=== PATIENT | female | born 1935 | race Caucasian/White ===

== ENCOUNTER 2017-04-25 21:36 | Inpatient (IN) | payer OTHER ==
[~2017-04-25] VITALS: Ht 167.6 cm; Wt 77.1 kg
--- NOTE | ~2017-04-25 | EKG ---
[place] [address] [facility] [place] [address] ELECTROCARDIOGRAM REPORT Name: JAIMEE RHODES Room #: 444-P [facility] IN M.R.#: [id number] Admission: 04/26/17 Attend Phys: Donald Kaufman MD Discharge: 04/26/17 Date of : 35 Report #: [id number] THIS REPORT FOR: //name// [facility] ED Test Date: 2017-04-25 Test Time: 22:06:00 Pat Name: JAIMEE RHODES Department: Room: [facility] Gender: F Labor Custodian: JOSEPH : 1935 Requested By: Lucinda Rojas Order Number: [id number] MD: Jefferson Wang Measurements Intervals [place] Rate: 72 P: -6 WA: 177 QRS: 7 QRSD: 94 T: 21 QT: 394 QTc: 432 Interpretive Statements Sinus rhythm Supraventricular bigeminy Abnormal R-wave progression, early transition No previous ECG available for comparison Electronically Signed On 04-26-2017 13:26:47 CARRIER BLOWER by Jefferson Wang [email or web address] <ELECTRONICALLY SIGNED> By: Jefferson Wang MD 04/26/171325 05 05 Jefferson Wang MD /DANYA
[2017-04-25 21:37] VITALS: BP 193/100
[2017-04-25 23:33] LABS: ABSOLUTE NEUTROPHILS 4.6 thou/uL (1.4-8.2); BASOPHILS 0.9 % (0.0-2.0); EOSINOPHILS 2.7 % (0.0-3.0); HEMATOCRIT 37.5 % (37.0-47.0); HEMOGLOBIN 13.2 gm/dL (12.0-15.0); LYMPHOCYTES 24.3 % (24.0-44.0); MCH 30.3 pg (26.0-34.0); MCHC 35.2 g/dL (28.0-37.0); MONOCYTES 10.4 % (1.0-8.0); PLATELET COUNT 188 thou/uL (150-400); POLYS 61.7 % (36.0-66.0); RBC 4.36 mil/uL (4.20-5.00); RDW 13.2 % (10.5-14.5); WBC 7.4 thou/uL (4.0-11.0)
[2017-04-25] MEDS ORDERED: LOSARTAN-HCTZ1 EAC3 PO (23:36)
[2017-04-25] MEDS ORDERED: SYNTHROID50 MCG PO (23:37)
[2017-04-25 23:50] LABS: ALBUMIN 3.9 g/dL (3.4-5.0); BUN 18 mg/dL (7-18); CALCIUM 9.5 mg/dL (8.5-10.1); CO2 25 mmol/L (21-32); CREATININE 0.9 mg/dL (0.6-1.0); GLUCOSE 108 mg/dL (74-106); SGOT 17 U/L (15-37); SGPT 23 U/L (30-65); TOTAL BILIRUBIN 0.7 mg/dL (<0.1-1.0); TOTAL PROTEIN 6.8 g/dL (6.4-8.2); TROPONIN-I < 0.04 ng/mL (<0.06)
[2017-04-25 23:59] LABS: SODIUM 131 mmol/L (136-145)
[2017-04-26] LABS: POTASSIUM 3.2 mmol/L (3.5-5.1)
[2017-04-26 00:01] LABS: CHLORIDE 96 mmol/L (98-107)
[2017-04-26 00:07] LABS: ANION GAP 10 mmol/L (7-16)
[2017-04-26 00:17] LABS: URINE BILIRUBIN NEGATIVE (Negative); URINE BLOOD NEGATIVE (Negative); URINE CLARITY CLEAR; URINE COLOR YELLOW; URINE GLUCOSE-RANDOM* NEGATIVE (Negative); URINE KETONES NEGATIVE (Negative); URINE LEUKOCYTES NEGATIVE (Negative); URINE NITRITE NEGATIVE (Negative); URINE PROTEIN (DIPSTICK) NEGATIVE (Negative); URINE SPECIFIC GRAVITY <= 1.005 (1.005-1.035); URINE UROBILINOGEN 0.2 E.U./dl (0.2-1.0)
[2017-04-26 01:07] VITALS: BP 131/68
[2017-04-26 01:17] VITALS: BP 146/80
[2017-04-26 03:43] VITALS: BP 119/75
[2017-04-26 07:40] VITALS: BP 129/69
[2017-04-26] MEDS ORDERED: MOBIC7.5 MG PO (11:08)
[2017-04-26 11:23] VITALS: BP 129/69
[2017-04-26 11:38] VITALS: BP 129/69
== END 2017-04-26 11:37 | disposition home or self-care (01) | DRG 305 ==
LOC: ER 21:36 → EROBS 04-26 00:20 → 4S 04-26 01:07
PROVIDERS: Nurse Practitioner Family
DX: I16.0 Hypertensive urgency (principal); E87.1 Hypo-osmolality and hyponatremia; I10 Essential (primary) hypertension; E03.9 Hypothyroidism, unspecified; Z79.899 Other long term (current) drug therapy; Z96.643 Presence of artificial hip joint, bilateral; M19.90 Unspecified osteoarthritis, unspecified site; E87.6 Hypokalemia
CPT/HCPCS: 10100

== ENCOUNTER 2017-09-27 12:48 | Emergency (ER) | payer OTHER ==
[~2017-09-27] VITALS: Ht 167.6 cm; Wt 77.1 kg
--- NOTE | ~2017-09-27 | EKG ---
[place] [address] [facility] [place] [address] ELECTROCARDIOGRAM REPORT Name: JAIMEE RHODES [id number] Admission: 09/27/17 Attend Phys: Discharge: 09/27/17 Date of : 35 Report #: [id number] THIS REPORT FOR: //name// [facility] ED Test Date: 2017-09-27 Test Time: 14:16:41 Pat Name: JAIMEE RHODES Department: Room: Gender: F Broth Mixer: Latasha MEDEL : 1935 Requested By: Markel Francisco Order Number: [id number] MD: Bolivar Loco Measurements Intervals [place] Rate: 58 P: -23 MD: 166 QRS: 15 QRSD: 89 T: 30 QT: 434 QTc: 427 Interpretive Statements Sinus rhythm Atrial premature complexes Abnormal R-wave progression, early transition Compared to ECG 04/25/2017 22:06:00 No significant changes Electronically Signed On 09-28-2017 11:03:48 CDT by Bolivar Loco [email or web address] <ELECTRONICALLY SIGNED> By: Bolivar Loco MD 09/28/17 1103 1416 1416 MD HAYLEY Ahuja
[~2017-09-27 12:48] MED LIST: LOSARTAN-HCTZ1 EAC3 PO; MOBIC7.5 MG PO; SYNTHROID50 MCG PO
[2017-09-27] MEDS ORDERED: HYZAAR 100-12.1 EACH PO (13:41)
[2017-09-27 13:58] LABS: ABSOLUTE NEUTROPHILS 3.7 thou/uL (1.4-8.2); BASOPHILS 1.2 % (0.0-2.0); EOSINOPHILS 2.6 % (0.0-3.0); HEMATOCRIT 37.1 % (37.0-47.0); HEMOGLOBIN 13.1 gm/dL (12.0-15.0); LYMPHOCYTES 28.8 % (24.0-44.0); MCH 30.6 pg (26.0-34.0); MCHC 35.4 g/dL (28.0-37.0); MCV 86.2 fL (80.0-100.0); MONOCYTES 9.4 % (1.0-8.0); PLATELET COUNT 229 thou/uL (150-400); RDW 13.3 % (10.5-14.5); WBC 6.4 thou/uL (4.0-11.0)
[2017-09-27 14:08] LABS: ANION GAP 7 mmol/L (7-16); BUN 13 mg/dL (7-18); CALCIUM 9.2 mg/dL (8.5-10.1); CHLORIDE 97 mmol/L (98-107); CO2 27 mmol/L (21-32); CREATININE 0.9 mg/dL (0.6-1.0); GLUCOSE 107 mg/dL (74-106); POTASSIUM 3.3 mmol/L (3.5-5.1); SODIUM 131 mmol/L (136-145)
[2017-09-27 14:17] LABS: TROPONIN-I <0.06 ng/mL (<0.06)
[2017-09-28] MEDS ORDERED: NORVASC5 MG PO (21:36)
== END 2017-09-27 16:18 | disposition home or self-care (01) ==
LOC: ER 12:48
PROVIDERS: Physician Assistant
DX: I10 Essential (primary) hypertension (principal); H61.23 Impacted cerumen, bilateral; E03.9 Hypothyroidism, unspecified; Z96.643 Presence of artificial hip joint, bilateral

== ENCOUNTER 2017-09-28 19:58 | Emergency (ER) | payer OTHER ==
[~2017-09-28] VITALS: Ht 167.6 cm; Wt 77.1 kg
--- NOTE | ~2017-09-28 | EKG ---
[place] [address] [facility] [place] [address] ELECTROCARDIOGRAM REPORT Name: JAIMEE RHODES Room #: DEP [facility]#: [id number] Admission: 09/28/17 Attend Phys: Discharge: 09/28/17 Date of : 35 Report #: [id number] THIS REPORT FOR: //name// [facility] ED Test Date: 2017-09-28 Test Time: 20:48:47 Pat Name: JAIMEE RHODES Department: Room: Gender: F Production Grader: WILLIAM : 1935 Requested By: Markel Francisco Order Number: [id number] MD: Kevin Wakefield Measurements Intervals [place] Rate: 69 P: -2 NV: 174 QRS: 16 QRSD: 92 T: 30 QT: 421 QTc: 451 Interpretive Statements Sinus rhythm Atrial premature complexes RSR' in V1 or V2, right VCD Compared to ECG 09/27/2017 14:16:41 RSR' in V1 or V2 now present Electronically Signed On 09-29-2017 7:56:39 CDT by Kevin Wakefield [email or web address] <ELECTRONICALLY SIGNED> By: Kevin Wakefield MD, [facility] 09/29/17 0756 47 Kevin Wakefield MD, [facility] /EPI
[~2017-09-28 19:58] MED LIST changes: +HYZAAR 100-12.1 EACH PO
[2017-09-28] MEDS ORDERED: NORVASC5 MG PO (21:36)
== END 2017-09-28 21:48 | disposition home or self-care (01) ==
LOC: ER 19:58
DX: I10 Essential (primary) hypertension (principal); E03.9 Hypothyroidism, unspecified; Z96.643 Presence of artificial hip joint, bilateral

== ENCOUNTER → 2018-08-06 | Outpatient (CLI) | payer OTHER ==
[~2018-08-06] MED LIST changes: +NORVASC5 MG PO
== END ==
LOC: RAD 09:53
DX: M51.36 Other intervertebral disc degeneration, lumbar region (principal); M43.16 Spondylolisthesis, lumbar region; M12.88 Other specific arthropathies, not elsewhere classified, other specified site; Z96.643 Presence of artificial hip joint, bilateral

== ENCOUNTER 2018-08-09 11:33 | Inpatient (IN) | payer OTHER ==
[~2018-08-09] VITALS: Ht 165.1 cm; Wt 72.6 kg
--- NOTE | ~2018-08-09 | HC ---
[facility] [place] [address] CONSULTATION Name: JAIMEE RHODES Room #: 461-P ADM IN M.R.#: [id number] Admission: 08/09/18 ������������������ Attend Phys: Ming Sanchez MD Discharge: ������������������ Date of : 35 Report #: [id number] THIS REPORT FOR: //name// CC: Ming Ruiz DATE OF SERVICE: 08/10/2018 HISTORY OF PRESENT ILLNESS: The patient is an 82-year-old female who was ambulating in the community, apparently stubbed her toe to the sidewalk and fell. She was noted to sustain right pubic rami fractures. Noted the weightbearing as tolerated. She was treated for some hyponatremia. Last sodium was improved to 134 from 131. We are seeing her in rehabilitation medicine consultation. PAST MEDICAL HISTORY: Includes bilateral total hip arthroplasties, history of right shoulder arthroplasty. She has a history of hypertension and hypothyroidism. MEDICATIONS: Please see the full medication listing. SOCIAL HISTORY: She lives in a house with her , 2 steps in with railing. Premorbid cane ambulator only in the community. REVIEW OF SYSTEMS: She did not offer any current complaints of chest pain, shortness of breath, or abdominal discomfort. ALLERGIES: No known drug allergies. PHYSICAL EXAMINATION: GENERAL: Pleasant 82-year-old white female, in no obvious distress. VITAL SIGNS: Last recorded temperature 98.6, pulse 76, respirations 20, blood pressure 129/81. She is alert and pleasant. HEENT: Appeared to be benign. NEUROLOGIC: Cranial nerves grossly intact. Facies are symmetric. MUSCULOSKELETAL: She has functional range of motion of both upper extremities without obvious focal weakness. DTRs are trace to 1. Lower extremities, functional range of motion of left lower extremity without focal weakness. She tends to favor moving that right lower extremity. I would grade her strength at more of 4- to 3+/5. Functionally, she has been min assist with sit to stand. Gait was 20 feet min assist with a front-wheeled walker. ASSESSMENT: An 82-year-old white female with the following problems: 1. Right pubic rami fractures, noted to be weightbearing as tolerated. 2. Hyponatremia, which has improved. 3. [place] [address] CONSULTATION Name: JAIMEE RHODES Room #: 461-P ADM IN M.R.#: [id number] Admission: 08/09/18 ������������������ Attend Phys: Ming Sanchez MD Discharge: ������������������ Date of : 35 Report #: [id number] 4. Hypothyroidism. PLAN: The patient does not meet criteria from a medical necessity standpoint for an acute 5-North inpatient rehabilitation stay. We will need to check another therapy options as per her insurance. Case management is to further assist. Thank you for asking us to assist in this patient's care. ��������������������������������������������� ���������������������������������������� By: ��������������������������������������������� 1217 0003 Roberto Arredondo MD /haroldo
[2018-08-09 11:38] VITALS: BP 140/84
[2018-08-09 12:32] LABS: ABSOLUTE NEUTROPHILS 8.3 thou/uL (1.4-8.2); BASOPHILS 0.5 % (0.0-2.0); EOSINOPHILS 0.8 % (0.0-3.0); HEMATOCRIT 37.8 % (37.0-47.0); LYMPHOCYTES 13.7 % (24.0-44.0); MCH 29.7 pg (26.0-34.0); MCHC 34.4 g/dL (28.0-37.0); MCV 86.2 fL (80.0-100.0); MONOCYTES 7.1 % (1.0-8.0); PLATELET COUNT 228 thou/uL (150-400); POLYS 77.9 % (36.0-66.0); RBC 4.39 mil/uL (4.20-5.00); RDW 13.6 % (10.5-14.5); WBC 10.7 thou/uL (4.0-11.0)
[2018-08-09 12:34] LABS: CALCIUM 9.5 mg/dL (8.5-10.1); CREATININE 0.9 mg/dL (0.6-1.0); POTASSIUM 3.7 mmol/L (3.5-5.1)
--- NOTE | 2018-08-09 15:15 | NUR ---
PT MOVED FROM BED 3 TO BED 16 AWAITING ADMISSION
[2018-08-09 16:23] VITALS: BP 154/83
[2018-08-09 16:52] VITALS: BP 143/79
--- NOTE | 2018-08-09 18:44 | NUR ---
PT ARROVED ON UNIT IN EARLY EVENING FROM ER. ORDERS IMPLEMETED, VITAL SIGNS STABLE. WILL CONTINUE TO MONITOR.
[2018-08-10 05:54] LABS: HEMATOCRIT 35.3 % (37.0-47.0); HEMOGLOBIN 12.2 gm/dL (12.0-15.0); MCH 29.7 pg (26.0-34.0); MCHC 34.5 g/dL (28.0-37.0); MCV 86.2 fL (80.0-100.0); RBC 4.09 mil/uL (4.20-5.00); RDW 13.7 % (10.5-14.5); WBC 10.2 thou/uL (4.0-11.0)
[2018-08-10 06:03] LABS: CALCIUM 8.8 mg/dL (8.5-10.1); CREATININE 0.8 mg/dL (0.6-1.0); MAGNESIUM 1.5 mg/dL (1.8-2.4); POTASSIUM 3.4 mmol/L (3.5-5.1)
[2018-08-10 08:00] VITALS: BP 129/81
--- NOTE | 2018-08-10 13:01 | NUR ---
MAGISTRATE ASSISTANT SENT REFERRAL TO [facility], WITH A POSSIBLE DISCHARGE TODAY.
--- NOTE | 2018-08-10 14:22 | NUR ---
PT ADMITTED RELATED TO RT PUBIC RAMUS FX. CM REVIEWED CHART AND SPOKE WITH CARE TEAM. CM MET WITH PT AT BEDSIDE THIS DAY. PT IS A&O X4. CM ROLE INTRODCUED. PT INDICATED SHE LIVES IN A HOUSE WITH HER SPOUSE WITH 2 STEPS TO ENTER AND NO STEPS INSIDE. 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 PT INDICATED SHE HOPED TO GO TO AN ACUTE REHAB ONCE MEDICALLY STABLE. 5N INDICATED THAT PT ISN'T MEDICALLY COMPLEX ENOUGH FOR 5N. REFERRAL WAS SENT TO [facility] FOR REVIEW FOR POSSIBLE ADMISSION. CM TO FOLLOW INDICATED WITH DC PLANNING.
--- NOTE | 2018-08-10 14:34 | NUR ---
PATIENT SEEN BY DR. OROZCO THIS DATE FOR CONSULTATION. PATIENT IS NOT A CANDIDATE FOR ACUTE REHAB DUE TO NO MEDICAL COMPLEXITY. PATTERNMAKER PLASTER INFORMED. THANK YOU FOR THIS REFERRAL.
[2018-08-10 15:00] VITALS: BP 121/79
--- NOTE | 2018-08-10 20:23 | NUR ---
ASSUMED CARE 0700. ALERT X4, PAIN MANAGED WITH MEDICATIONS, UP WITH MODERATE ASSISTACNE WITH GAIT BELT AND WALKER, WEIGHT BARING TOLERATED. ROUNDED WITH PT AND OT AND TOLERATED WELL. PT WILL DC TO REHAB POSSIBLE TOMORROW. FALL PRECAUTIONS IN PLACE. CALLS FOR ASSISTANCE. CALL LIGHT IN REACH.
[2018-08-10 21:34] VITALS: BP 141/86
[2018-08-11 05:36] LABS: HEMATOCRIT 34.4 % (37.0-47.0); HEMOGLOBIN 11.8 gm/dL (12.0-15.0); MCH 29.7 pg (26.0-34.0); MCHC 34.3 g/dL (28.0-37.0); MCV 86.6 fL (80.0-100.0); RBC 3.97 mil/uL (4.20-5.00); RDW 13.7 % (10.5-14.5); WBC 10.9 thou/uL (4.0-11.0)
[2018-08-11 05:52] LABS: CALCIUM 9.1 mg/dL (8.5-10.1); CREATININE 0.9 mg/dL (0.6-1.0); MAGNESIUM 1.9 mg/dL (1.8-2.4)
[2018-08-11 05:54] LABS: POTASSIUM 4.6 mmol/L (3.5-5.1)
[2018-08-11 05:57] VITALS: BP 130/77
[2018-08-11 07:15] VITALS: BP 140/77
--- NOTE | 2018-08-11 08:12 | NUR ---
PROGRESS PT SLEPT WELL PAIN IN BETTER CONTROL ABLE TO AMBULATE TO BR WITH GB AND WALKER. TAKING PAIN MEDS SPARINGLY. HOPES TO TRANSFER HOME OR TO REHAB SOON CONTINUE TO MONITOR.
--- NOTE | 2018-08-11 11:37 | NUR ---
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
[2018-08-11 14:50] VITALS: BP 107/62
--- NOTE | 2018-08-11 15:01 | NUR ---
ASSUMED CARE 0700. A/OX4, PAIN MANAGED WITH MEDICATIONS, VOICED SHE FEELS BETTER AND ABLE TO AMBULATE WITH LESS PAIN THEN YESTURDAY. BM TODAY CONTINENT PLANS TO DC TO REHAB TOMORROW. FALL PRECATIONS REMAIN IN PLACE. USES CALL LIGHT APPROPRIATELY.
--- NOTE | 2018-08-11 17:29 | NUR ---
INSURANCE DENIED [facility]. CM NOTIFIED PT AND FAMILY REFERRAL TO BE SENT TO [facility] FOR REVIEW FOR POSSIBLE ADMISSION.
[2018-08-11 20:25] VITALS: BP 147/78
[2018-08-12 05:47] LABS: HEMOGLOBIN 11.5 gm/dL (12.0-15.0); MCH 29.9 pg (26.0-34.0); MCHC 34.8 g/dL (28.0-37.0); MCV 85.8 fL (80.0-100.0); RBC 3.84 mil/uL (4.20-5.00); RDW 13.7 % (10.5-14.5); WBC 8.9 thou/uL (4.0-11.0)
[2018-08-12 06:00] LABS: CALCIUM 9.1 mg/dL (8.5-10.1); CREATININE 0.8 mg/dL (0.6-1.0); MAGNESIUM 2.1 mg/dL (1.8-2.4); POTASSIUM 4.4 mmol/L (3.5-5.1)
[2018-08-12 07:27] VITALS: BP 136/72
--- NOTE | 2018-08-12 07:56 | NUR ---
progress pt a/o x 4 up with cga gb and walker gait steady reports less pain since she has been up walking. taking oxycodone for pain with effect. plans to dc to rehab until well enough to go home continue poc.
--- NOTE | 2018-08-12 10:09 | NUR ---
DIscharge Planning: FÉLIX faxed initial referral to [facility] . FÉLIX spoke with admissions/Kimberly [phone] ext. # [phone]. [facility] said they received referral and she forwarded it to the nurse, Kimberly will get back to myself (FÉLIX) or Cristiana/GUILLE here at [facility]. Odalis is ready for discharge today.
--- NOTE | 2018-08-12 15:04 | NUR ---
Received awake on bed. Due medications given as prescribed- able to swallow medications without difficulty. With SL at [facility]. A/W doctors rounds if pt will be dischaged today, CM aware and waiting for her input as well. Falls risk- falls bundle in place. Visited by relatives today. Able to sit out on chair. On room air. Vital signs stable. A+Ox4.
[2018-08-12 15:20] VITALS: BP 166/84
--- NOTE | 2018-08-12 15:36 | NUR ---
cm reached out to magdalena with [facility] rt auth for snf at [facility] for skilled. cm left message requested call back. magdalena called back stated " was just on phone with [facility] and they have auth number for skilled rehab"/magdalena with [facility]. cm passed on information to cm team.
[2018-08-12] MEDS ORDERED: COZAAR 50 MG TA50 M1 PO (16:24)
[2018-08-12] MEDS ORDERED: HYDROCODON-ACE1 EAC7 PO (16:25)
--- NOTE | 2018-08-12 18:18 | NUR ---
PT DISHCARGED TO [facility] THIS DAY. REPORT WAS CALLED. ORDERS WERE FAXED. CHART COPY MADE. PT'S AND FAMILY WERE AWARE AND AGREEABLE. NO OTHER CM INTERVENTION INDICATED AT THIS TIME. CASE CLOSED.
== END 2018-08-12 18:50 | DRG 536 ==
LOC: ER 11:33 → EROBS 14:00 → 4W 14:00
PROVIDERS: Nurse Practitioner Family; ADMIT Internal Medicine
DX: S32.591A Other specified fracture of right pubis, initial encounter for closed fracture (principal); E87.1 Hypo-osmolality and hyponatremia; I10 Essential (primary) hypertension; W18.39XA Other fall on same level, initial encounter; M25.461 Effusion, right knee; E03.9 Hypothyroidism, unspecified; E87.6 Hypokalemia; E83.42 Hypomagnesemia; Z96.611 Presence of right artificial shoulder joint; Z96.643 Presence of artificial hip joint, bilateral; Z79.899 Other long term (current) drug therapy; Y93.89 Activity, other specified; Y92.89 Other specified places as the place of occurrence of the external cause; Y99.8 Other external cause status
CPT/HCPCS: 10040

== ENCOUNTER 2018-09-13 12:10 | Emergency (ER) | payer OTHER ==
[~2018-09-13] VITALS: Ht 162.6 cm; Wt 79.4 kg
[~2018-09-13 12:10] MED LIST changes: +COZAAR 50 MG TA50 M1 PO; +HYDROCODON-ACE1 EAC7 PO
[2018-09-13 15:26] VITALS: BP 127/79
[2018-09-13] MEDS ORDERED: NORCO 5-325 TA1 EAC1 PO (16:38)
== END 2018-09-13 14:55 | disposition home or self-care (01) ==
LOC: ER 12:10
DX: S32.9XXA Fracture of unspecified parts of lumbosacral spine and pelvis, initial encounter for closed fracture (principal); X58.XXXA Exposure to other specified factors, initial encounter; Y93.89 Activity, other specified; Y92.89 Other specified places as the place of occurrence of the external cause; Y99.8 Other external cause status; I10 Essential (primary) hypertension; E03.9 Hypothyroidism, unspecified; Z96.643 Presence of artificial hip joint, bilateral

== ENCOUNTER → 2018-09-28 | Outpatient (CLI) | payer OTHER ==
[~2018-09-28] VITALS: Ht 165.1 cm; Wt 68.0 kg
[~2018-09-28] MED LIST changes: +NORCO 5-325 TA1 EAC1 PO
--- NOTE | ~2018-09-28 | HPC ---
[facility] [address] [place] [address] PAIN MANAGEMENT CONSULTATION Name: JAIMEE RHODES Room #: REG LOUISE Satya.#: [id number] Admission: 09/28/18 ������������������ Attend Phys: Audi Stafford MD Discharge: ������������������ Date of : 35 Report #: [id number] THIS REPORT FOR: //name// CC: Silvana Ruiz V BELT CURER Audi Stafford DATE OF SERVICE: 09/28/2018 SUBJECTIVE: The patient showed up at our front office spec today from Dr. Ruiz's office crying. She was to schedule an appointment. We worked her into the schedule because she was in such miserable pain. She scored her pain is a 10 plus. She suffered a fall about 6 weeks ago. As a result of the fall, she sustained multiple fractures of her pelvis including the superior and inferior pubic rami as well as the sacral ala bilaterally. She has been in pain ever since. She has been given medications to ease her pain, but the pain continues to be severe. She also complains today of pain more than her pelvis. In fact, her primary pain seems to be radicular in nature. It radiates down the posterior aspect of her legs. It is noted on her x-rays later in the visit that she has a grade 1+ spondylolisthesis, which may be either acute or potentially also causing her pain. Her fall was fairly significant. MEDICATIONS: Hydrocodone 7.5/325. This is a new increase in prescription from Dr. Ruiz's office. She denies other medications. ALLERGIES: None. PAST MEDICAL HISTORY: Significant for low back arthritis, but otherwise, she reports she has been in excellent health. She has had a hip replacement on both right and left and she has had shoulder surgery in 2019. REVIEW OF SYSTEMS: Positive for pain, limited movement, loss of appetite, fatigue, weakness, nervousness, depression, insomnia, triggered also by pain. 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 She lives at home with her with whom she celebrated their 66 anniversary yesterday. She denies use of tobacco or alcohol. She is here today with her daughter who is supportive and providing care in the home. PHYSICAL EXAMINATION: GENERAL: She is pleasant female. By the time she was in my office, she had calmed down significantly, was not crying, although she cried earlier in the [facility] [address] [place] [address] PAIN MANAGEMENT CONSULTATION Name: JAIMEE RHODES Room #: REG CLSarah Mason#: [id number] Admission: 09/28/18 ������������������ Attend Phys: Audi Stafford MD Discharge: ������������������ Date of : 35 Report #: [id number] visit. VITAL SIGNS: Her blood pressure 132/80, heart rate 98, respirations 16. HEENT: Within normal limits. Pupils equal, round, reactive to light. EOMs are intact. Mucous membranes are moist. NECK: Supple. CHEST: Clear to auscultation. CARDIAC: Rhythm is regular. ABDOMEN: Soft with no organomegaly. BACK: Examination of the spine reveals some tenderness across the lumbosacral segment. She has tenderness bilaterally in the area where the sacral ala fracture would be present. She also has some anterior pain along the pubic rami. Straight leg raising is positive for radicular symptoms at L5-S1 distribution bilaterally. She can ambulate, but there is a slight fall risk. She spent most of time in our office in a wheelchair. Sensation is intact with no loss of sensation. She has generalized weakness of the lower extremities, mostly guarding because of pain. IMPRESSION: 1. Low back pain with radiculopathy, which I believe is L5-S1 and may be related to the sacral ala fractures. It follows all the way from the back through the hips, posterior thighs and into the calves. 2. Multiple pelvic fractures related to trauma. RECOMMENDATIONS: Interrupting the pain cycle with an epidural plus treatment of the radicular symptoms seems reasonable. Potential risks and benefits of procedure were discussed with the patient. She is anxious to proceed. PROCEDURE: Epidural steroid injection under fluoroscopic guidance. She was taken to fluoroscopic suite, placed prone, skin prepped with ChloraPrep. Skin anesthetized over the L5-S1 interspace. A 20-gauge Tuohy epidural needle was advanced in the epidural space, but was uncomfortable with the epidurogram. I also did not want to give her an intrathecal injection late in the day. The needle was removed. I believe the initial medication was likely posterior to the sacral table in reviewing the x-rays. I had only injected saline and a small amount of radiographic dye. I elected to proceed to the area of the L4-L5 spondylolisthesis and advanced needle into the epidural space with local anesthetic 1% lidocaine using loss of resistance technique. There was no blood or CSF aspirated. A 1 mL of Omnipaque was injected and excellent epidurogram achieved, extending caudad and cephalad and it was then followed by 4 mL of 0.5% lidocaine mixed with 40 mg of triamcinolone. I chose to reduce her triamcinolone due to her fractures and history of osteoporosis. She tolerated the procedure well. Pain score was reduced by roughly 50% at discharge. [facility] [address] [place] [address] PAIN MANAGEMENT CONSULTATION Name: JAIMEE RHODES [facility] [id number] Admission: 09/28/18 ������������������ Attend Phys: Audi Stafford MD Discharge: ������������������ Date of : 35 Report #: [id number] I have told her that she should see some healing from these injections over time and we would anticipate that it might take as long as 3-4 months. ��������������������������������������������� ���������������������������������������� By: ��������������������������������������������� 1822 0012 Audi Stafford MD /nt
[2018-09-28 15:30] VITALS: BP 132/80
--- NOTE | 2018-09-28 15:42 | NUR ---
Pain Clinic Assessment: 1. History of Osteoarthritis: SHOULDER RT BILAT HIPS BACK History of Rheumatoid Arthritis: Not Applicable 2. Height: 5 ft. 5 in. 165.1 cm. Weight: 150.0 lb. oz. 68.040 kg. Patient's BMI: 25.0 3. Vital Signs: BP: 132/80 Pulse: 98 Resp: 16 Temp: 02 Sat: 98 ECG Mon: 4. Pain Intensity: 10 5. Fall Risk: Dizziness: N Needs help standing or walking: Y Fallen in the last 3 months: Y Fall risk comments: 6. Patient on Blood Thinner: None 7. History of Hypertension: Y 8. Opioid Therapy greater than 6 weeks: Y Opiate Contract Signed: 9. Risk Assessment Tool Provided: 10. Functional Assessment Tool: 70/70 11. Recreational Drug Use: Never Drug Type: Tobacco Use: Never Smoker Tobacco Type: Amount or Packs/day: How Many Years: Alcohol Use: No Frequency: Quant:
== END | disposition home or self-care (01) ==
LOC: PAIN 15:04
DX: M54.16 Radiculopathy, lumbar region (principal); M43.16 Spondylolisthesis, lumbar region; M19.90 Unspecified osteoarthritis, unspecified site; Z79.899 Other long term (current) drug therapy; Z96.643 Presence of artificial hip joint, bilateral; Z98.890 Other specified postprocedural states; Z88.8 Allergy status to other drugs, medicaments and biological substances

== ENCOUNTER → 2018-10-29 | Outpatient (CLI) | payer OTHER ==
[~2018-10-29] VITALS: Ht 165.1 cm; Wt 66.6 kg
[~2018-10-29] MED LIST changes: +COZAAR 25 MG TA25 M1 PO; +NORCO 7.5-3251 EACH PO; +TOBRAMYCIN SULFA5 M1 OPHTHALMIC
--- NOTE | ~2018-10-29 | HPC ---
[facility] [place] [address] PAIN MANAGEMENT CONSULTATION Name: JAIMEE RHODES Room #: REG LOUISE Satya.#: [id number] Admission: 10/29/18 Attend Phys: Audi Stafford MD Discharge: Date of : 35 Report #: [id number] THIS REPORT FOR: //name// CC: Silvana Ruiz DANETTE Stafford DATE OF SERVICE: 10/29/2018 Followup visit for lumbar radiculopathy related to L5 nerve root irritation and fracture of the sacral ala. The patient returns to pain clinic today in followup. I saw her 1 month ago. At the time of her last appointment, she was an add-on to the schedule in excruciating pain, crying in our office. She received an epidural injection with dramatic improvement. She returns today with her daughter. Her pain is better, but she still suffers at the level of 5/10. She is a fall risk and has difficulty standing and walking. She can only go short distances. She has diffuse osteoarthritis as well. She has been taking some opioid medication and is considered at low risk. She is on an opioid agreement. She denies use of tobacco and alcohol. PHYSICAL EXAMINATION: VITAL SIGNS: She is 5 feet 5 inches, 146 pounds with a BMI of 24.4. Her blood pressure is 148/96, heart rate 81, respirations 16. GENERAL: She moves independently from sitting to standing position, but it is difficult for her to stand for any period of time. CHEST: Her chest is clear. CARDIAC: Her cardiac rhythm is regular. There is no audible murmur. ABDOMEN: Soft, no organomegaly. MUSCULOSKELETAL: Reveals tenderness across the lumbosacral spine. There is also tenderness in the anterior pelvis as well along the pubic rami. She has marked positive straight leg raising pain at the L5-S1 distribution, which is worse on the right than the left today. Sensation is intact. Generalized weakness of the lower extremities is appreciated. IMPRESSION: Lumbar radiculopathy with multiple pelvic fractures. I believe the pain is primarily related to irritation of the L5 nerve root at the sacral ala. RECOMMENDATIONS: Repeat epidural injection today under fluoroscopic guidance. PROCEDURE: She was taken to the fluoroscopic suite for treatment, where she was placed prone. Skin prepped with ChloraPrep. Skin anesthetized over the L5-S1 interspace. A 20-gauge Tuohy epidural needle advanced into the epidural space to right of midline using loss of resistance technique. There was no blood or CSF aspirated. A 1 mL of Omnipaque was injected and good spread of dye observed [address] [address] PAIN MANAGEMENT CONSULTATION Name: JAIMEE RHODES Room #: REG LOUISE Mason#: [id number] Admission: 10/29/18 Attend Phys: Audi Stafford MD Discharge: Date of : 35 Report #: [id number] within the epidural space. This was then followed by 3 mL of 0.5% lidocaine mixed with 80 mg of triamcinolone. She tolerated the procedure well and was observed for 45 minutes and discharged. Follow up as needed. By: 1802 0136 Audi Stafford MD /nt
[2018-10-29 11:35] VITALS: BP 148/96
--- NOTE | 2018-10-29 11:50 | NUR ---
Pain Clinic Assessment: 1. History of Osteoarthritis: SHOULDER RT BILAT HIPS BACK History of Rheumatoid Arthritis: Not Applicable 2. Height: 5 ft. 5 in. 165.1 cm. Weight: 146.8 lb. oz. 66.588 kg. Patient's BMI: 24.4 3. Vital Signs: BP: 148/96 Pulse: 81 Resp: 16 Temp: 02 Sat: 100 ECG Mon: 4. Pain Intensity: 5 5. Fall Risk: Dizziness: N Needs help standing or walking: Y Fallen in the last 3 months: N Fall risk comments: 6. Patient on Blood Thinner: None 7. History of Hypertension: Y 8. Opioid Therapy greater than 6 weeks: Y Opiate Contract Signed: 9. Risk Assessment Tool Provided: 10. Functional Assessment Tool: 70/70 11. Recreational Drug Use: Never Drug Type: Tobacco Use: Never Smoker Tobacco Type: Amount or Packs/day: How Many Years: Alcohol Use: No Frequency: Quant:
== END | disposition home or self-care (01) ==
LOC: PAIN 06:54
DX: M54.16 Radiculopathy, lumbar region (principal); G89.29 Other chronic pain; I10 Essential (primary) hypertension; Z98.890 Other specified postprocedural states; Z79.891 Long term (current) use of opiate analgesic; Z88.8 Allergy status to other drugs, medicaments and biological substances; Z79.899 Other long term (current) drug therapy

== ENCOUNTER → 2018-11-26 | Outpatient (CLI) | payer OTHER ==
[~2018-11-26] VITALS: Ht 167.6 cm; Wt 66.2 kg
[~2018-11-26] MED LIST changes: +HYDROCODONE-AP1 EA11 PO
[2018-11-26 09:14] VITALS: BP 121/80
--- NOTE | 2018-11-26 09:24 | NUR ---
Pain Clinic Assessment: 1. History of Osteoarthritis: SHOULDER RT BILAT HIPS BACK History of Rheumatoid Arthritis: Not Applicable 2. Height: 5 ft. 6 in. 167.6 cm. Weight: 146.0 lb. oz. 66.225 kg. Patient's BMI: 23.6 3. Vital Signs: BP: 121/80 Pulse: 72 Resp: 18 Temp: 02 Sat: 99 ECG Mon: 4. Pain Intensity: 4 5. Fall Risk: Dizziness: N Needs help standing or walking: N Fallen in the last 3 months: N Fall risk comments: 6. Patient on Blood Thinner: None 7. History of Hypertension: Y 8. Opioid Therapy greater than 6 weeks: Y Opiate Contract Signed: 9. Risk Assessment Tool Provided: LOW-0 10. Functional Assessment Tool: 70/70 11. Recreational Drug Use: Never Drug Type: Tobacco Use: Never Smoker Tobacco Type: Amount or Packs/day: How Many Years: Alcohol Use: No Frequency: Quant:
--- NOTE | 2018-12-03 16:52 | HPC ---
[facility] [place] [address] PAIN MANAGEMENT CONSULTATION Name: JAIMEE RHODES Room #: REG LOUISE MKenzie.#: [id number] Admission: 11/26/18 Attend Phys: Audi Stafford MD Discharge: Date of : 35 Report #: [id number] THIS REPORT FOR: //name// CC: Silvana Ruiz DANETTE Stafford DATE OF SERVICE: 11/26/2018 Followup visit for low back pain with L5 radiculopathy. The patient has done very well following her epidural injection. Pain remains at a low level. It can be as high as 4 with activity, but this is a substantial improvement from her prior pain. She is here today to discuss future treatments. We have decided not to perform another epidural injection for her at this point, but will do another one if necessary. I reviewed her condition of grade 1 to 2 spondylolisthesis at L4-L5. She uses medications carefully and successfully. Munger 7.5/325 taken once or twice a day provides her with enough medication to be much more active and she sleeps better as well. I have agreed to provide the medication for her under terms of a written opioid agreement. She may also alternately get this from her primary care practice if they will provide it for her. I would be willing to provide it for her on an as needed basis as long as she does not exceed the 15 MME currently established. PQRS REVIEW: 1. She has diffuse osteoarthritis for which this medication is helpful including shoulders, back, hips. 2. Her BMI remains low at 23.6. 3. Vital signs 121/80, heart rate 72, respirations 18, O2 sat 99. 4. Pain intensity 4/10. 5. She is not a fall risk. 6. No blood thinning medications. 7. She is under treatment for hypertension, and I have reviewed all of her medications under the electronic medical record. 8. She has signed an opioid agreement. 9. She is at low risk for addiction by the opioid risk tool score of 0. 10. She denies the use of tobacco or recreational drugs. She denies use of alcohol. PHYSICAL EXAMINATION: She moves easily from sitting to standing position. Her gait is nonantalgic. She has some tenderness across the lumbosacral spine, but much improved. Straight leg raising is negative today. IMPRESSION AND PLAN: Lumbar radiculopathy aided dramatically by epidural [address] [address] PAIN MANAGEMENT CONSULTATION Name: JAIMEE RHODES Room #: REG LOUISE Mason#: [id number] Admission: 11/26/18 Attend Phys: Audi Stafford MD Discharge: Date of : 35 Report #: [id number] injection. I will continue to provide her with Munger under terms of her written opioid agreement; she will carefully safeguard it. We discussed side effects, particularly constipation, which is common in the elderly. She will manage this and call us if there are any problems. Prescription was provided for Munger 7.5/325 one tablet b.i.d. <ELECTRONICALLY SIGNED> By: Audi Stafford MD 12/03/18 [id number] Audi Stafford MD /nt
== END ==
LOC: PAIN 06:48
DX: M54.16 Radiculopathy, lumbar region (principal)

== ENCOUNTER → 2019-02-01 | Outpatient (CLI) | payer OTHER | LOC: BC 11:05 | DX: Z12.31 Encounter for screening mammogram for malignant neoplasm of breast (principal) ==